=== PATIENT | female | born 2000 | race Caucasian/White ===

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

== ENCOUNTER 2022-02-12 12:34 | Emergency (ER) | payer OTHER ==
[2022-02-12] MEDS ORDERED: Acetaminophen 500 MG TAB ONE (13:27)
[2022-02-12] MEDS ORDERED: Ondansetron ODT 4 MG TAB ONE (13:27)
== END 2022-02-12 14:28 | disposition home or self-care (01) ==
LOC: MADERS 12:34
DX: U07.1 COVID-19 (principal); J02.9 Acute pharyngitis, unspecified; R11.2 Nausea with vomiting, unspecified; D50.9 Iron deficiency anemia, unspecified
CPT/HCPCS: 99284; Q0162; U0003; U0005

== ENCOUNTER 2022-05-15 10:21 | Emergency (ER) | payer OTHER ==
[2022-05-15 11:19] LABS: Bilirubin Negative (Negative); Blood, Urine Trace (Negative); Glucose, Urine (Dipstick) Negative (Negative); Ketone, Urine Negative (Negative); Leukocyte Moderate (Negative); Nitrite Negative (Negative); Protein, Urine (Dipstick) Negative (Neg-Trace); Urobilinogen 0.2 mg/dL (Less than 2); pH, Urine 6.5 (5.0-9.0)
[2022-05-15 11:21] LABS: Clarity Slightly Cloudy (Clear); Pregnancy Test - Urine (BHCG) Negative (Negative); Pregu Control Background? CLEAR/WHITE (CLR/WHITE); Pregu Control Bar Appear? YES (CONTROL BAR)
[2022-05-15 11:34] LABS: Bacteria/HPF Rare-Few HPF (None Seen); RBC/HPF 0-3 HPF (0-3); Squamous Epithelial 0-3 HPF (0-3); WBC/HPF 21-50 HPF (0-3)
[2022-05-15] MEDS ORDERED: Lactated Ringer's 1,000 ML ONE (12:22)
[2022-05-15] MEDS ORDERED: Ketorolac Tromethamine 30 MG/ML VIAL ONE (12:22)
[2022-05-15] MEDS ORDERED: Promethazine HCl 25 MG/ML VIAL ONE (12:22)
[2022-05-15] MEDS ORDERED: Amoxicillin/Potassium Clav 875 MG TAB ONE (12:22)
[2022-05-15 12:23] LABS: #Basophils 0.1 thou/uL (0.0-0.2); #Eosinphils 0.1 thou/uL (0.0-0.7); #Lymphocytes 1.5 thou/uL (1.20-3.40); #Monocytes 0.7 thou/uL (0.11-0.59); #Neutrophils 8.8 thou/uL (1.40-6.50); %Basophils 1.2 % (0.0-1.0); %Eosinophils 1.2 % (0.0-10.0); %Lymphocytes 13.4 % (28.0-48.0); %Monocytes 6.2 % (0.0-4.0); Hemoglobin 12.5 g/dL (12.0-16.0); Mean Corpuscular HGB CONC 33.6 g/dL (32.0-36.0); Mean Corpuscular Hemoglobin 28.8 pg (25.0-35.0); Mean Corpuscular Volume 85.8 fl (78.0-98.0); Mean Platelet Volume 8.5 fL (7.4-10.4); Platelet Count 248 10x3/uL (130-400); RBC Distribution Width 10.4 % (11.5-14.5); Red Blood Cell (RBC) Count 4.32 mill/uL (4.00-5.20); White Blood Cell (WBC) Count 11.3 10x3/uL (4.8-10.8)
[2022-05-15] MEDS ORDERED: Sodium Chloride 0.9% 50 ML ONE (12:23)
[2022-05-15 12:39] LABS: ALT (SGPT) Less than 7 U/L (8-55); AST (SGOT) 16 U/L (5-30); Albumin 4.2 g/dL (3.5-5.0); Alkaline Phosphatase 77 U/L (40-100); Anion Gap 11 mmol/L (10-20); BUN (Urea Nitrogen) 7 mg/dL (8.4-21.0); Bilirubin, Total 0.7 mg/dL (0.2-1.2); Calc. Creatinine Clearance 0 mL/min (70-130); Carbon Dioxide 24 mmol/L (22-29); Chloride 105 mmol/L (98-107); Estimated GFR 119; Globulin 2.8 g/dL (2.4-3.5); Glucose 84 mg/dL (70-105); Lipase 28 U/L (8-78); Potassium 4.1 mmol/L (3.5-5.1); Sodium 136 mmol/L (136-145)
[2022-05-16 12:19] LABS: Chlamydia by PCR Not Detected (NotDetected); GC by PCR Not Detected (NotDetected)
== END 2022-05-15 15:14 | disposition home or self-care (01) ==
LOC: MADERS 10:21
DX: J01.90 Acute sinusitis, unspecified (principal); R10.30 Lower abdominal pain, unspecified; R11.2 Nausea with vomiting, unspecified; D72.829 Elevated white blood cell count, unspecified; Z20.822 Contact with and (suspected) exposure to COVID-19
CPT/HCPCS: 80053; 81003; 81015; 81025; 83605; 83690; 85025; 87040; 87081; 87086; 87430; 87480; 87491; 87510; 87591; 87660; 87804; 94760; 96361; 96374; 96375; J1885; J2550; J7120; U0003; U0005

== ENCOUNTER 2024-02-10 14:20 | Emergency (ER) | payer OTHER | END 2024-02-10 15:15 | disposition home or self-care (01) | LOC: MADERS 14:20 | DX: J02.9 Acute pharyngitis, unspecified (principal) | CPT/HCPCS: 87081; 87430; 99283 ==

== ENCOUNTER 2024-05-14 13:25 | Emergency (ER) | payer OTHER | END 2024-05-14 14:50 | disposition home or self-care (01) | LOC: MADERS 13:25 | DX: H66.92 Otitis media, unspecified, left ear (principal); H73.92 Unspecified disorder of tympanic membrane, left ear | CPT/HCPCS: 87428; 99283 ==

== ENCOUNTER 2025-01-07 22:26 | Emergency (ER) | payer OTHER ==
[2025-01-07 23:23] LABS: Glucose, Urine (Dipstick) Negative (Negative); Leukocyte Small (Negative); Protein, Urine (Dipstick) Trace mg/dL (Neg-Trace); Specific Gravity, Urine 1.025 (1.005-1.030)
[2025-01-07 23:24] LABS: CAUTI Indications for Culture Pelvic or flank pain; RBC/HPF None Seen HPF (0-3)
[2025-01-07 23:25] LABS: Urine Culture Reflex No No
[2025-01-09 07:51] LABS: Chlam.trachomatis by PCR,Urine Not Detected (NotDetected); GC N.gonorrhoeae PCR,UrineVOID DETECTED (NotDetected)
== END 2025-01-07 23:56 | disposition home or self-care (01) ==
LOC: MADERS 22:26
DX: N76.0 Acute vaginitis (principal); F17.290 Nicotine dependence, other tobacco product, uncomplicated
CPT/HCPCS: 81001; 87491; 87591; 99283